=== PATIENT | female | born 1975 | race Hispanic/Latino ===

== ENCOUNTER 2019-10-28 10:48 | Outpatient (CLI) | payer OTHER ==
--- NOTE | 2019-10-28 12:54 | ULT ---
OB ULTRASOUND: INDICATION: Anatomy evaluation. FINDINGS: A viable intrauterine . Gestational age by ultrasound is 20 weeks 2 days. BIOMETRY: BPD 20 weeks 3 days HC 20 weeks 1 day FL 19 weeks 3 days AC 20 weeks 6 days EFW: 333 gm, 20 weeks 3 days. heart rate: 155 b.p.m. Placenta: Fundal. Presentation: Variable. Amniotic fluid: Within normal range. GUANACO recorded at 11.23 cm. Cervical length: 4.7 cm. Anatomy: Intracranial contents, 4-chamber heart, stomach, kidneys, cord insertion, bladder, spine, lips, nose, extremities, and 3-vessel cord were all imaged. The spine was somewhat limited due to positio n. No abnormality identified. IMPRESSION: A 20-week 2-day gestational age by ultrasound. POS: AGW
== END 2019-10-28 10:49 | disposition home or self-care (01) ==
LOC: BICULT 10:48
PROVIDERS: ATTEND Family Medicine
DX: O09.512 Supervision of elderly primigravida, second trimester (principal); Z3A.20 20 weeks gestation of pregnancy
CPT/HCPCS: 76805

== ENCOUNTER 2020-01-13 22:09 | Inpatient (IN) | payer MEDICAID, OTHER, SELFPAY ==
[2020-01-13] MEDS: hydrALAZINE 20 MG/ML VIAL SLOW IVP PRN ×2 (22:10→23:22)
[2020-01-13 22:30] VITALS: BMI 39.6
[2020-01-13] MEDS ORDERED: Promethazine HCl 25 MG/ML VIAL IM PRN (22:39)
[2020-01-13] MEDS ORDERED: Butorphanol Tartrate 1 MG/ML VIAL SLOW IVP PRN (22:39)
[2020-01-13] MEDS ORDERED: Ondansetron PF 4 MG/2 ML Vial IVP PRN (22:39)
[2020-01-13] MEDS ORDERED: Calcium Gluc 4.6 MEQ/10 ML (100 MG/ML) SLOW IVP PRN (22:41)
[2020-01-13] MEDS ORDERED: Magnesium Sulfate 20 GM/WATER 500 ML BAG IVPB SCH (22:45)
[2020-01-13] MEDS: Lactated Ringer's 1,000 ML IV SCH (22:48)
--- NOTE | 2020-01-13 22:48 | PDOC.LDHP ---
Labor and Delivery H&P Chief complaint: other (elevated BP) HPI: 44 y/o at 31w2d, patient of Dr. Cifuentes, presents after having a 170/110 at home. Patient reports she was seen in clinic earlier today and noted to have a mildly elevated BP and was instructed to get a cuff at home. Denies VB, LOF, ctx, PIH sx, or other concerns. +FM. ROS neg for HEENT, cv, pulm, gi, gu, neuro, psych, skin, musculoskeletal or constitutional symptoms other than mentioned above. OB History Details: 1 prior SAB Current complications: none Past Medical History: None Current medications: pre-yuridia vitamins Previous surgical history: other (cataract removal in R eye) Allergies/Adverse Reactions: Allergies Allergy/AdvReac Type Severity Reaction Status Date / Time Penicillins Allergy Severe Short of Verified 01/13/20 22:32 Breath Social history: none - Physical Exam Abnormal vital signs: Severe range BPs General: NAD Lungs: nonlabored breathing Abdomen: gravid Extremeties: no edema FHT: category 1 (140s, mod variability, + accels, no decels) [place] contractions every: irritability - Assessment 44 y/o at 31w2d with new onset severe range BPs. status reassuring. - Plan Plan: admit to L&D, magnesium for seizure prophylaxis -: Hydralazine for BPs. Mag for seizure prophylaxis. PIH workup, UDS ordered Celestone for FLM Dr. Cifuentes notified.
[2020-01-13] MEDS: Betamet Acet/Betamet Na Ph 30 MG/5 ML VIAL IM SCH (23:15)
[2020-01-13 23:17] LABS: #Basophils 0.1 thou/uL (0.0-0.2); #Eosinphils 0.2 thou/uL (0.0-0.7); #Lymphocytes 2.6 thou/uL (1.20-3.40); #Neutrophils 9.8 thou/uL (1.40-6.50); %Basophils 0.6 % (0.0-1.0); %Eosinophils 1.3 % (0.0-10.0); %Lymphocytes 18.9 % (21.0-51.0); %Monocytes 7.5 % (0.0-10.0); %Neutrophils 71.8 % (42.0-75.0); Hemoglobin 12.6 g/dL (12.0-16.0); Mean Corpuscular HGB CONC 33.6 g/dL (32.0-36.0); Mean Corpuscular Hemoglobin 30.2 pg (27.0-31.0); Mean Corpuscular Volume 89.8 fL (78.0-98.0); Mean Platelet Volume 7.6 fL (7.4-10.4); Platelet Count 366 thou/uL (130-400); RBC Distribution Width 12.7 % (11.5-14.5); Red Blood Cell (RBC) Count 4.18 mill/uL (4.20-5.40); White Blood Cell (WBC) Count 13.7 thou/uL (4.8-10.8)
[2020-01-13 23:25] LABS: Amphetamine Not Detected (NotDetected); Barbiturates Screen Not Detected (NotDetected); Benzodiazepine Screen Not Detected (NotDetected); Cocaine Metabolite Screen Not Detected (NotDetected); Medtox Control Line Valid? VALID (VALID); Medtox Reader # READER 1; Methadone Not Detected (NotDetected); Methamphetamine Not Detected (NotDetected); Opiate Screen Not Detected (NotDetected); Oxycodone Screen Not Detected (NotDetected); Phencyclidine (PCP) Not Detected (NotDetected); THC/Cannabinoid Screen Not Detected (NotDetected); Tricyclic Screen Not Detected (NotDetected)
[2020-01-13 23:35] LABS: Creatinine, Urine Less than 20.00 mg/dL (47-110); Protein, Urine Random Quant Less than 10 mg/dL (1-14)
[2020-01-13 23:37] LABS: ALT (SGPT) 21 U/L (8-55); AST (SGOT) 18 U/L (5-34); Albumin 3.1 g/dL (3.5-5.0); Alkaline Phosphatase 114 U/L (40-110); Anion Gap 14 mmol/L (10-20); BUN (Urea Nitrogen) 12 mg/dL (7.0-18.7); Bilirubin, Total Less than 0.2 mg/dL (0.2-1.2); Calc. Creatinine Clearance 178 mL/min (70-130); Calcium 8.9 mg/dL (7.8-10.44); Carbon Dioxide 19 mmol/L (22-29); Chloride 107 mmol/L (98-107); Estimated GFR-MDRD Greater than 90; Glucose 100 mg/dL (70-105); Potassium 4.3 mmol/L (3.5-5.1); Protein, Total 6.1 g/dL (6.0-8.3); Sodium 136 mmol/L (136-145)
[2020-01-13 23:56] LABS: HBSAg Index 0.16 S/CO (0-0.99); Hep B Surf Ag Non-Reactive S/CO (NonReactive)
[2020-01-13 23:57] LABS: Syphilis Antibody Nonreactive (Nonreactive); Syphilis Antibody Index 0.04 S/CO (<1.00 Non-Reactive)
[2020-01-14] MEDS: Acetaminophen 500 MG TAB PO PRN ×2 (00:49→14:16)
[2020-01-14] MEDS: Magnesium Sulfate 20 gm/500 ml 20 GM/500 ML BAG IVPB SCH ×2 (07:50→17:36)
[2020-01-14 09:13] LABS: SARS-CoV-2 MS2 Positive; SARS-CoV-2 N Gene Negative; SARS-CoV-2 S Gene Negative; SARS-CoV-2 by NAA Not Detected (NotDetected); SARS-CoV-2 orf1ab Negative
[2020-01-14] MEDS: Lactated Ringer's 1,000 ML IV SCH (23:38)
[2020-01-14] MEDS: Betamet Acet/Betamet Na Ph 30 MG/5 ML VIAL IM SCH (23:39)
[2020-01-15] MEDS: Magnesium Sulfate 20 gm/500 ml 20 GM/500 ML BAG IVPB SCH ×3 (02:48→23:02)
[2020-01-15] MEDS: Acetaminophen 500 MG TAB PO PRN (08:37)
[2020-01-15] MEDS: Lactated Ringer's 1,000 ML IV SCH ×3 (12:17→23:03)
[2020-01-15] MEDS: Betamet Acet/Betamet Na Ph 30 MG/5 ML VIAL IM SCH (23:03)
[2020-01-16] MEDS: Lactated Ringer's 1,000 ML IV SCH ×2 (01:04→21:16)
[2020-01-16] MEDS ORDERED: NIFEdipine XL 30 MG TAB PO SCH (15:00)
--- NOTE | 2020-01-16 15:52 | ULT ---
ULTRASOUND OBSTETRICAL COMPLETE: DATE: 01/16/2020 HISTORY: 44-year-old female with preeclampsia FINDINGS: Maternal adnexa: Not visualized number: sandra lie: Breech Maternal cervix: 3 cm. Closed. Placenta: Anterior. No placenta previa. Amniotic fluid volume: GUANACO = 13.5cm heart rate: 137 bpm anatomy not evaluated except for four-chamber heart. biometry: Biparietal diameter (BPD): 8.1 cm 32 w 4 d Head circumference (HC): 28.9 cm 31 w 5 d Abdominal circumference (AC): 27.4 cm 31 w 3 d Femur length (FL): 6.1 cm 31 w 4 d Average ultrasound age (AUA): 31 w 5 d Estimated date of delivery (DEMETRA): 03/14/2020 Estimated weight (EFW): 1797 g +/- 266 g IMPRESSION: 1) Live 3rd trimester intrauterine gestation. 2) Estimated gestational age of 31 weeks, 5 days 3) breech lie.
[2020-01-16 16:29] LABS: Creatinine, Urine 27.72 mg/dL (47-110)
[2020-01-17] MEDS: Lactated Ringer's 1,000 ML IV SCH ×3 (02:03→20:24)
[2020-01-17] MEDS: Betamet Acet/Betamet Na Ph 30 MG/5 ML VIAL IM SCH ×2 (02:03→20:25)
[2020-01-17] MEDS: NIFEdipine XL 30 MG TAB PO SCH (10:06)
[2020-01-17 13:19] LABS: Hemoglobin 11.1 g/dL (12.0-16.0); Mean Corpuscular HGB CONC 34.3 g/dL (32.0-36.0); Mean Corpuscular Hemoglobin 31.5 pg (27.0-31.0); Mean Platelet Volume 7.3 fL (7.4-10.4); Platelet Count 254 thou/uL (130-400); RBC Distribution Width 12.8 % (11.5-14.5); Red Blood Cell (RBC) Count 3.53 mill/uL (4.20-5.40); White Blood Cell (WBC) Count 9.3 thou/uL (4.8-10.8)
[2020-01-17 13:38] LABS: ALT (SGPT) 32 U/L (8-55); AST (SGOT) 37 U/L (5-34); Albumin 2.5 g/dL (3.5-5.0); Alkaline Phosphatase 101 U/L (40-110); Anion Gap 12 mmol/L (10-20); BUN (Urea Nitrogen) 14 mg/dL (7.0-18.7); Bilirubin, Total 0.3 mg/dL (0.2-1.2); Calc. Creatinine Clearance 166 mL/min (70-130); Calcium 7.6 mg/dL (7.8-10.44); Carbon Dioxide 21 mmol/L (22-29); Chloride 107 mmol/L (98-107); Estimated GFR-MDRD Greater than 90; Globulin 2.4 g/dL (2.4-3.5); Glucose 76 mg/dL (70-105); Potassium 3.9 mmol/L (3.5-5.1); Protein, Total 4.9 g/dL (6.0-8.3); Sodium 136 mmol/L (136-145)
[2020-01-17] MEDS: Calcium Carbonate 500 MG ChewTAB PO PRN (22:50)
[2020-01-18] MEDS ORDERED: hydrALAZINE 20 MG/ML VIAL SLOW IVP PRN (04:07)
[2020-01-18] MEDS: Lactated Ringer's 1,000 ML IV SCH ×2 (04:55→14:09)
[2020-01-18 07:10] LABS: Hemoglobin 11.4 g/dL (12.0-16.0); Mean Corpuscular HGB CONC 34.1 g/dL (32.0-36.0); Mean Corpuscular Hemoglobin 30.9 pg (27.0-31.0); Mean Corpuscular Volume 90.8 fL (78.0-98.0); Mean Platelet Volume 7.5 fL (7.4-10.4); Platelet Count 253 thou/uL (130-400); RBC Distribution Width 12.7 % (11.5-14.5); Red Blood Cell (RBC) Count 3.69 mill/uL (4.20-5.40); White Blood Cell (WBC) Count 10.3 thou/uL (4.8-10.8)
[2020-01-18 07:20] LABS: ALT (SGPT) 36 U/L (8-55); AST (SGOT) 33 U/L (5-34); Albumin 2.4 g/dL (3.5-5.0); Alkaline Phosphatase 111 U/L (40-110); Anion Gap 13 mmol/L (10-20); BUN (Urea Nitrogen) 15 mg/dL (7.0-18.7); Bilirubin, Total 0.2 mg/dL (0.2-1.2); Calc. Creatinine Clearance 163 mL/min (70-130); Calcium 8.2 mg/dL (7.8-10.44); Carbon Dioxide 20 mmol/L (22-29); Chloride 108 mmol/L (98-107); Estimated GFR-MDRD Greater than 90; Globulin 2.5 g/dL (2.4-3.5); Glucose 78 mg/dL (70-105); Potassium 4.3 mmol/L (3.5-5.1); Protein, Total 4.9 g/dL (6.0-8.3); Sodium 137 mmol/L (136-145)
[2020-01-18] MEDS: NIFEdipine XL 30 MG TAB PO SCH (09:15)
[2020-01-18] MEDS: Calcium Carbonate 500 MG ChewTAB PO PRN (17:32)
[2020-01-18] MEDS: hydrALAZINE 20 MG/ML VIAL SLOW IVP PRN ×2 (17:42→18:18)
[2020-01-18 19:18] VITALS: TEMP 98.4
[2020-01-19] MEDS: NIFEdipine XL 60 MG TAB PO SCH (09:53)
[2020-01-19] MEDS: Calcium Carbonate 500 MG ChewTAB PO PRN ×2 (16:24→20:21)
[2020-01-19] MEDS: Lactated Ringer's 1,000 ML IV SCH (18:07)
[2020-01-19] MEDS: Betamet Acet/Betamet Na Ph 30 MG/5 ML VIAL IM SCH (18:08)
[2020-01-20] MEDS: NIFEdipine XL 60 MG TAB PO SCH (08:52)
[2020-01-20] MEDS: Calcium Carbonate 500 MG ChewTAB PO PRN (19:11)
[2020-01-21] MEDS: Acetaminophen 500 MG TAB PO PRN (00:21)
[2020-01-21 07:54] LABS: Hemoglobin 14.5 g/dL (12.0-16.0); Mean Corpuscular HGB CONC 33.9 g/dL (32.0-36.0); Mean Corpuscular Volume 91.5 fL (78.0-98.0); Mean Platelet Volume 7.5 fL (7.4-10.4); Platelet Count 298 thou/uL (130-400); RBC Distribution Width 12.7 % (11.5-14.5); Red Blood Cell (RBC) Count 4.67 mill/uL (4.20-5.40); White Blood Cell (WBC) Count 11.8 thou/uL (4.8-10.8)
[2020-01-21] MEDS: Betamet Acet/Betamet Na Ph 30 MG/5 ML VIAL IM SCH (07:56)
[2020-01-21 08:16] LABS: ALT (SGPT) 37 U/L (8-55); AST (SGOT) 33 U/L (5-34); Albumin 3.2 g/dL (3.5-5.0); Alkaline Phosphatase 162 U/L (40-110); Anion Gap 14 mmol/L (10-20); BUN (Urea Nitrogen) 8 mg/dL (7.0-18.7); Bilirubin, Total 0.2 mg/dL (0.2-1.2); Calc. Creatinine Clearance 158 mL/min (70-130); Calcium 8.9 mg/dL (7.8-10.44); Carbon Dioxide 20 mmol/L (22-29); Chloride 106 mmol/L (98-107); Estimated GFR-MDRD Greater than 90; Globulin 3.3 g/dL (2.4-3.5); Glucose 80 mg/dL (70-105); Potassium 4.1 mmol/L (3.5-5.1); Protein, Total 6.5 g/dL (6.0-8.3); Sodium 136 mmol/L (136-145)
[2020-01-21 08:31] LABS: Creatinine, Urine 41.72 mg/dL (47-110)
[2020-01-21] MEDS: NIFEdipine XL 60 MG TAB PO SCH (08:53)
[2020-01-21 08:59] VITALS: BP 134/71
== END 2020-01-21 08:58 | disposition home or self-care (01) | DRG 833 ==
LOC: L&D/OP 22:09 → L&D 01-14 00:20 → 3SW 01-17 15:25 → L&D 01-18 19:34
PROVIDERS: ADMIT Family Medicine; ATTEND Family Medicine
DX: O14.93 Unspecified pre-eclampsia, third trimester (principal); O32.1XX0 Maternal care for breech presentation, not applicable or unspecified; Z20.828 Contact with and (suspected) exposure to other viral communicable diseases; O09.523 Supervision of elderly multigravida, third trimester; Z3A.31 31 weeks gestation of pregnancy; Z88.0 Allergy status to penicillin; Z79.82 Long term (current) use of aspirin
CPT/HCPCS: 36415; 51702; 59025; 76816; 80053; 80306; 82570; 84156; 85025; 85027; 86780; 86850; 86900; 86901; 87340; 87635; 99285; J0360; J0702; J3475; U0003

== ENCOUNTER 2020-01-23 13:01 | Observation (INO) | payer MEDICAID ==
[2020-01-23] MEDS ORDERED: hydrALAZINE 20 MG/ML VIAL SLOW IVP PRN ×2 (13:40→15:48)
[2020-01-23] MEDS ORDERED: Labetalol HCl 100 MG/20 ML VIAL SLOW IVP SCH (13:45)
[2020-01-23] MEDS ORDERED: FLU VACC QS2020-21(6MOS UP)/PF 60 MCG/0.5 ML SYRINGE IM ONE (13:45)
--- NOTE | 2020-01-23 14:24 | PDOC.LDHP ---
Labor and Delivery H&P Chief complaint: other HPI: 44 yo LAF here for BPP from Dr. Cifuentes. Seen earlier this week with elevated BPs, sebnt home on Procardia XL 60 QD. No c/o, denies CISNEROS or blurry vision. Current gestational age (weeks): 32 Due date: 03/14/20 Dating criteria: last menstrual period Grav: 2 Para: 0 OB History Details: SAB x1 PNC with Dr. Cifuentes as above. BMX x2 given on o with last admit. Current complications: other (as above) Abnormal US findings: No Past Medical History: none Current medications: pre- vitamins, other (Procardia XL 60 QD) Previous surgical history: other (cataract) Allergies/Adverse Reactions: Allergies Allergy/AdvReac Type Severity Reaction Status Date / Time Penicillins Allergy Severe Short of Verified 01/13/20 22:32 Breath Social history: none - Physical Exam Abnormal vital signs: 186/104, 169/96 General: NAD Heart: RRR Lungs: CTAB Abdomen: gravid Extremeties: trace edema FHT: category 1 [place] contractions every: none - Assessment 32 5/7 weeks here for BPP with elevated BPs H/o PIH, now on Procardia BMX given 01/13/20 - Plan Plan: observation in L&D, other (Apresoline x1 and observe Check new labs Will start Mg for severe pressures and consider delivery)
[2020-01-23 15:33] LABS: #Eosinphils 0.2 thou/uL (0.0-0.7); #Lymphocytes 2.3 thou/uL (1.20-3.40); #Monocytes 0.9 thou/uL (0.11-0.59); #Neutrophils 9.7 thou/uL (1.40-6.50); %Basophils 0.3 % (0.0-1.0); %Eosinophils 1.5 % (0.0-10.0); %Lymphocytes 17.3 % (21.0-51.0); %Neutrophils 73.9 % (42.0-75.0); Hemoglobin 12.6 g/dL (12.0-16.0); Mean Corpuscular HGB CONC 34.2 g/dL (32.0-36.0); Mean Corpuscular Hemoglobin 30.6 pg (27.0-31.0); Mean Corpuscular Volume 89.4 fL (78.0-98.0); Mean Platelet Volume 7.8 fL (7.4-10.4); Platelet Count 282 thou/uL (130-400); RBC Distribution Width 12.9 % (11.5-14.5); Red Blood Cell (RBC) Count 4.13 mill/uL (4.20-5.40); White Blood Cell (WBC) Count 13.1 thou/uL (4.8-10.8)
[2020-01-23] MEDS ORDERED: Ondansetron PF 4 MG/2 ML Vial IVP PRN (15:48)
[2020-01-23] MEDS ORDERED: Promethazine HCl 25 MG/ML VIAL IM PRN (15:48)
[2020-01-23 15:54] LABS: ALT (SGPT) 41 U/L (8-55); AST (SGOT) 40 U/L (5-34); Albumin 2.9 g/dL (3.5-5.0); Alkaline Phosphatase 139 U/L (40-110); Anion Gap 13 mmol/L (10-20); BUN (Urea Nitrogen) 14 mg/dL (7.0-18.7); Bilirubin, Total 0.2 mg/dL (0.2-1.2); Calc. Creatinine Clearance 0 mL/min (70-130); Calcium 8.9 mg/dL (7.8-10.44); Carbon Dioxide 20 mmol/L (22-29); Chloride 107 mmol/L (98-107); Estimated GFR-MDRD 88; Globulin 2.9 g/dL (2.4-3.5); Glucose 90 mg/dL (70-105); Potassium 4.4 mmol/L (3.5-5.1); Protein, Total 5.8 g/dL (6.0-8.3); Sodium 136 mmol/L (136-145)
[2020-01-23] MEDS ORDERED: Acetaminophen 500 MG TAB PO PRN (15:54)
[2020-01-23 16:16] LABS: Creatinine, Urine 135.52 mg/dL (47-110)
--- NOTE | 2020-01-23 17:34 | PDOC.EVN ---
Event Note - Event Note Event Note: No c/o. No further severe range pressures seen. BP now= 136/78. No hyperreflexia seen. Labs: WBC= 13.1, H/H= 12.6/36.9, plts= 282K T. bili= 0.2, AST/ALT= 40/41 Urine P/CR= 2.79 Plan: Cont. in-hospital OBS, will discuss with Dr. Cifuentes when he returns from OT this PM.
--- NOTE | 2020-01-23 23:20 | ULT ---
LIMITED OB ULTRASOUND: Date: 01/23/2020 PROVIDED CLINICAL HISTORY: Preeclampsia, evaluate estimated weight and GUANACO. FINDINGS: Comparison is made with examination dated 01/16/2020. A single, live intrauterine gestation is documented in vertex presentation, with heart rate of 173 be ats/minute documented. The placenta is left laterally located, without evidence for previa. Amniotic fluid index is 14.7. Cervical length appears adequate. Estimated gestational age based on today's exa mination is 32 weeks and 0 days. Estimated weight is 1,921 +/- 284 gm. The visualized bladder, kidneys, 4 chamber heart and stomach situs appear normal. Biometry: BPD: 8.03 cm, 32 weeks 2 days HC: 28.7 cm, 31 weeks 3 days AC: 28.7 cm, 32 weeks 5 days FL: 6.1 cm, 31 weeks 3 days IMPRESSION: Single live intrauterine gestation as described above. POS: PAULETTE
[2020-01-24] MEDS ORDERED: Misoprostol 200 MCG TAB ONE (08:16)
[2020-01-24] MEDS ORDERED: NIFEdipine XL 60 MG TAB PO SCH (10:45)
[2020-01-24 11:05] VITALS: BP 149/80
[2020-01-25] MEDS ORDERED: NIFEdipine XL 60 MG TAB PO SCH (09:00)
== END 2020-01-24 14:30 | disposition home health service, planned readmission (86) ==
LOC: L&D/OP 13:01 → L&D 15:48
PROVIDERS: ADMIT Obstetrics & Gynecology; ATTEND Obstetrics & Gynecology
DX: O99.891 Other specified diseases and conditions complicating pregnancy (principal); E03.0 Congenital hypothyroidism with diffuse goiter; O09.523 Supervision of elderly multigravida, third trimester; O09.293 Supervision of pregnancy with other poor reproductive or obstetric history, third trimester; Z3A.32 32 weeks gestation of pregnancy; Z79.82 Long term (current) use of aspirin; Z79.899 Other long term (current) drug therapy; Z88.0 Allergy status to penicillin
CPT/HCPCS: 36415; 76815; 80053; 82570; 84156; 85025; 96374; 99285; G0378; J0360

== ENCOUNTER 2020-02-01 20:01 | Inpatient (IN) | payer MEDICAID ==
[~2020-02-01 20:01] MED LIST: Bupivacaine 0.25% HCL 30 ML VIAL ONE; Bupivacaine/Epinephrine 0.25% 30 ML VIAL ONE; Lidocaine 2% MPF 10 ML AMP (For Epidural Use) ONE
[2020-02-01] MEDS ORDERED: Ibuprofen 800 MG TAB PO PRN (20:16)
[2020-02-01] MEDS ORDERED: Diphenoxylate HCl/Atropine Tablet PO PRN (20:16)
[2020-02-01] MEDS ORDERED: Misoprostol 200 MCG TAB PR PRN (20:16)
[2020-02-01] MEDS ORDERED: Ondansetron PF 4 MG/2 ML Vial IVP PRN (20:16)
[2020-02-01] MEDS ORDERED: hydrALAZINE 20 MG/ML VIAL SLOW IVP PRN (20:16)
[2020-02-01] MEDS ORDERED: Lidocaine 1% (PF) 30 ML VIAL SC PRN (20:16)
[2020-02-01] MEDS ORDERED: Butorphanol Tartrate 1 MG/ML VIAL SLOW IVP PRN (20:16)
[2020-02-01] MEDS ORDERED: Carboprost 250 MCG/ML AMP IM PRN (20:16)
[2020-02-01] MEDS ORDERED: HYDROcodone/Acetaminophen 5/325 mg Tablet PO PRN (20:16)
[2020-02-01] MEDS ORDERED: Promethazine HCl 25 MG/ML VIAL IM PRN (20:16)
[2020-02-01] MEDS ORDERED: NS w/ Oxytocin 10 units 500 ML IV SCH (20:30)
[2020-02-01] MEDS ORDERED: NS / Oxytocin 40 units/1000ml 1,000 ML IV PRN (20:30)
[2020-02-01 20:54] VITALS: BMI 37.3
[2020-02-01] MEDS: Lactated Ringer's 1,000 ML IV SCH (21:20)
[2020-02-01] MEDS: Misoprostol 100 MCG TAB VAG SCH (21:25)
[2020-02-01 21:48] LABS: Mean Corpuscular Hemoglobin 31.1 pg (27.0-31.0); Mean Corpuscular Volume 88.9 fL (78.0-98.0); Mean Platelet Volume 7.6 fL (7.4-10.4); Platelet Count 371 thou/uL (130-400); RBC Distribution Width 13.2 % (11.5-14.5); Red Blood Cell (RBC) Count 4.49 mill/uL (4.20-5.40); White Blood Cell (WBC) Count 12.5 thou/uL (4.8-10.8)
[2020-02-01 21:58] LABS: ALT (SGPT) 28 U/L (8-55); AST (SGOT) 29 U/L (5-34); Albumin 2.8 g/dL (3.5-5.0); Alkaline Phosphatase 167 U/L (40-110); Anion Gap 17 mmol/L (10-20); BUN (Urea Nitrogen) 14 mg/dL (7.0-18.7); Bilirubin, Total Less than 0.2 mg/dL (0.2-1.2); Calc. Creatinine Clearance 142 mL/min (70-130); Calcium 8.7 mg/dL (7.8-10.44); Carbon Dioxide 17 mmol/L (22-29); Chloride 106 mmol/L (98-107); Globulin 2.5 g/dL (2.4-3.5); Glucose 91 mg/dL (70-105); Potassium 4.5 mmol/L (3.5-5.1); Protein, Total 5.3 g/dL (6.0-8.3); Sodium 135 mmol/L (136-145)
[2020-02-01] MEDS: Clindamycin/D5W 900 MG in Premix Bag 1 BAG IVPB SCH (22:00)
[2020-02-01 22:16] LABS: Syphilis Antibody Nonreactive (Nonreactive); Syphilis Antibody Index 0.03 S/CO (<1.00 Non-Reactive)
[2020-02-01 22:44] LABS: HBSAg Index 0.15 S/CO (0-0.99); Hep B Surf Ag Non-Reactive S/CO (NonReactive)
[2020-02-02] MEDS: Misoprostol 100 MCG TAB VAG SCH ×2 (01:05→19:35)
[2020-02-02] MEDS: Clindamycin/D5W 900 MG in Premix Bag 1 BAG IVPB SCH ×2 (07:59→15:44)
[2020-02-02] MEDS ORDERED: Bupivacaine 0.5% 20 ML, fentaNYL Citrate/PF 400 MCG in Sodium Chloride 0.9% 72 ML EPIDURAL SCH (08:15)
[2020-02-02] MEDS ORDERED: DISCONTINUE ALL PREVIOUS NARCOTICS FS SCH (08:15)
[2020-02-02] MEDS: NS w/ Oxytocin 10 units 500 ML IV SCH ×2 (10:07→23:28)
[2020-02-02] MEDS ORDERED: ePHEDrine 50 MG/ML VIAL SLOW IVP PRN (11:14)
[2020-02-02] MEDS ORDERED: Acetaminophen 325 MG TAB PO PRN (11:14)
[2020-02-02] MEDS ORDERED: Naloxone HCl 0.4 mg/ml Vial IVP PRN ×2 (11:14)
[2020-02-02] MEDS ORDERED: Promethazine HCl 25 MG/ML VIAL IM PRN (11:14)
[2020-02-02] MEDS ORDERED: diphenhydrAMINE 50 MG/ML VIAL IVP PRN (11:14)
[2020-02-02] MEDS ORDERED: Ondansetron PF 4 MG/2 ML Vial IVP PRN ×2 (11:14→23:29)
[2020-02-02] MEDS ORDERED: Lactated Ringer's 500 ML IV PRN (11:14)
[2020-02-02] MEDS ORDERED: Communication Order-Pharmacy FS PRN (11:15)
[2020-02-02] MEDS ORDERED: Fentanyl 4 mcg/Bupivacaine 0.1% Cassette 100 ML EPIDURAL SCH (11:15)
[2020-02-02] MEDS: Lactated Ringer's 1,000 ML IV SCH ×2 (12:17→19:35)
[2020-02-02] MEDS ORDERED: Fentanyl 100 MCG/2 ML VIAL ONE ×2 (16:05→18:01)
[2020-02-02] MEDS ORDERED: Magnesium Sulfate 20 gm/500 ml 20 GM/500 ML BAG ONE (18:11)
[2020-02-02] MEDS ORDERED: Calcium Gluc 4.6 MEQ/10 ML (100 MG/ML) SLOW IVP PRN (18:50)
[2020-02-02 18:58] LABS: Actual Bicarbonate (HCO3a) 22.5 mEq/L (22-28); Base Excess (BEa) -7.9 mEq/L (-2.0 to +3.0)
[2020-02-02] MEDS ORDERED: Magnesium Sulfate 20 GM/WATER 500 ML BAG IVPB SCH (19:00)
[2020-02-02] MEDS ORDERED: Milk Of Magnesia 30 ML UDCUP PO PRN (23:29)
[2020-02-02] MEDS ORDERED: Calcium Gluconate 4.6 MEQ in Sodium Chloride 0.9% 100 ML IVPB PRN (23:29)
[2020-02-02] MEDS ORDERED: HYDROcodone/Acetaminophen 5/325 mg Tablet PO PRN ×2 (23:29)
[2020-02-02] MEDS ORDERED: Lanolin Ointment 7 GM TUBE TOP PRN (23:29)
[2020-02-02] MEDS ORDERED: Benzocaine-Menthol 82.5 ML CAN TOP PRN (23:29)
[2020-02-02] MEDS ORDERED: NS / Oxytocin 40 units/1000ml 1,000 ML IV SCH (23:29)
[2020-02-02] MEDS ORDERED: diphenhydrAMINE 25 MG CAP PO PRN (23:29)
[2020-02-02] MEDS ORDERED: Bisacodyl 10 MG SUPP PR PRN (23:29)
[2020-02-02] MEDS ORDERED: Docusate Calcium (SURFAK) 240 MG CAP PO SCH (23:45)
[2020-02-03] MEDS: Ibuprofen 800 MG TAB PO SCH ×3 (00:32→16:29)
[2020-02-03] MEDS: Magnesium Sulfate 20 gm/500 ml 20 GM/500 ML BAG IVPB SCH ×2 (02:18→11:17)
[2020-02-03] MEDS: Lactated Ringer's 1,000 ML IV SCH (02:38)
[2020-02-03] MEDS: hydrALAZINE 20 MG/ML VIAL SLOW IVP SCH ×2 (07:50→07:51)
[2020-02-03] MEDS ORDERED: Adacel (T-DAP) 0.5 ML SYRINGE IM ONE (09:00)
[2020-02-03] MEDS: Prenatal Vitamin 1 TAB PO SCH (09:03)
[2020-02-03] MEDS: Ferrous Sulfate 325 MG TAB PO SCH ×2 (09:03→19:07)
[2020-02-03] MEDS: Docusate Calcium (SURFAK) 240 MG CAP PO SCH ×2 (09:03→21:47)
[2020-02-03] MEDS: NIFEdipine XL 60 MG TAB PO SCH (09:03)
[2020-02-03 14:02] LABS: Hemoglobin 13.1 g/dL (12.0-16.0); Mean Corpuscular Hemoglobin 31.1 pg (27.0-31.0); Mean Platelet Volume 7.1 fL (7.4-10.4); Platelet Count 312 thou/uL (130-400); RBC Distribution Width 13.4 % (11.5-14.5); Red Blood Cell (RBC) Count 4.22 mill/uL (4.20-5.40); White Blood Cell (WBC) Count 12.4 thou/uL (4.8-10.8)
[2020-02-03 14:25] LABS: ALT (SGPT) 25 U/L (8-55); AST (SGOT) 27 U/L (5-34); Albumin 2.5 g/dL (3.5-5.0); Alkaline Phosphatase 127 U/L (40-110); Anion Gap 12 mmol/L (10-20); BUN (Urea Nitrogen) 11 mg/dL (7.0-18.7); Bilirubin, Total 0.2 mg/dL (0.2-1.2); Calc. Creatinine Clearance 173 mL/min (70-130); Carbon Dioxide 18 mmol/L (22-29); Chloride 101 mmol/L (98-107); Globulin 2.5 g/dL (2.4-3.5); Glucose 96 mg/dL (70-105); Sodium 127 mmol/L (136-145)
[2020-02-03] MEDS ORDERED: cloNIDine 0.1 MG TAB PO PRN (16:22)
[2020-02-04] MEDS: Ibuprofen 800 MG TAB PO SCH ×2 (00:16→09:09)
[2020-02-04] MEDS: Prenatal Vitamin 1 TAB PO SCH (09:08)
[2020-02-04] MEDS: NIFEdipine XL 60 MG TAB PO SCH (09:09)
[2020-02-04] MEDS: Docusate Calcium (SURFAK) 240 MG CAP PO SCH (09:10)
[2020-02-04] MEDS: Ferrous Sulfate 325 MG TAB PO SCH (09:12)
[2020-02-04 13:25] VITALS: BP 125/86; TEMP 98.3
== END 2020-02-04 20:15 | disposition home or self-care (01) | DRG 807 ==
LOC: L&D 20:01 → 3SW 02-03 21:19
PROVIDERS: ADMIT Family Medicine; ATTEND Family Medicine
PROC: 10E0XZZ Delivery of Products of Conception, External Approach (ICD-10-PCS; principal; 2020-02-02)
PROC: 10907ZC Drainage of Amniotic Fluid, Therapeutic from Products of Conception, Via Natural or Artificial Opening (ICD-10-PCS; 2020-02-02)
PROC: 3E033VJ Introduction of Other Hormone into Peripheral Vein, Percutaneous Approach (ICD-10-PCS; 2020-02-02)
PROC: 3E0P7VZ Introduction of Hormone into Female Reproductive, Via Natural or Artificial Opening (ICD-10-PCS; 2020-02-02)
PROC: 10H07YZ Insertion of Other Device into Products of Conception, Via Natural or Artificial Opening (ICD-10-PCS; 2020-02-02)
DX: O14.14 Severe pre-eclampsia complicating childbirth (principal); Z37.0 Single live birth; Z3A.34 34 weeks gestation of pregnancy; Z79.82 Long term (current) use of aspirin; Z88.0 Allergy status to penicillin
CPT/HCPCS: 36415; 51702; 80053; 82805; 83735; 85027; 86780; 86850; 86900; 86901; 87340; 88307; J0360; J2001; J2405; J2590; J3010; J3475; J3490; S0020